=== PATIENT | male | born 1985 | race Caucasian/White ===

== ENCOUNTER 2022-07-23 21:05 | Emergency (ER) | payer BC ==
[~2022-07-23] VITALS: Ht 175.3 cm; Wt 77.1 kg
[2022-07-24 00:55] VITALS: BP 112/65
--- NOTE | 2022-07-24 00:55 | NUR ---
BIBSELF FROM HOME C/O L WRIST & THUMB PAIN X 1 WK. NO INJURY NOTED
--- NOTE | 2022-07-24 01:16 | NUR ---
DR STEPH CARRION AT PT'S BEDSIDE FOR EVAL
[2022-07-24] MEDS ORDERED: IBUP-1955 PO (01:21)
--- NOTE | 2022-07-24 01:21 | NUR ---
SHANK TAPPER AT PT'S BEDSIDE
[2022-07-24] MEDS ORDERED: KETOROLAC TROMETHAMINE INJ 30 MG/ML VIAL IM ONE (01:30)
[2022-07-24] MEDS ORDERED: KETOROLAC TROMETHAMINE INJ 30 MG/ML VIAL ONE (01:41)
--- NOTE | 2022-07-24 01:56 | NUR ---
Patient discharged to home in stable condition. RX Written and verbal after care instructions given. Patient verbalizes understanding of instruction.
--- NOTE | 2022-07-24 01:56 | NUR ---
L THUMB SPICA SPLINT APPLIED
== END 2022-07-24 02:19 | disposition home or self-care (01) ==
LOC: ER 21:08
DX: M65.4 Radial styloid tenosynovitis [de Quervain] (principal); Z98.890 Other specified postprocedural states; Z79.899 Other long term (current) drug therapy; Z60.2 Problems related to living alone
CPT/HCPCS: 99283; 29125; 96372; 73110; J7030; J1885; A4223